=== PATIENT | female | born 1930 | race Caucasian/White ===

== ENCOUNTER 2018-03-08 05:29 | Inpatient (IN) | payer MEDICARE, OTHER ==
[2018-03-01 16:18] LABS: BASOPHILS # (AUTO) 0.1 X10'3 (0-0.2); BASOPHILS % (AUTO) 0.6 % (0-1); EOSINOPHILS # (AUTO) 0.3 X10'3 (0-0.9); EOSINOPHILS % (AUTO) 3.6 % (0-6); LYMPHOCYTES # (AUTO) 2.5 X10'3 (1.1-4.8); LYMPHOCYTES % (AUTO) 28.8 % (21-51); MEAN PLATELET VOLUME 8.3 FL (7.4-10.4); MONOCYTES # (AUTO) 0.6 X10'3 (0-0.9); MONOCYTES % (AUTO) 7.1 % (2-12); NEUTROPHILS # (AUTO) 5.3 X10'3 (1.8-7.7); NEUTROPHILS % (AUTO) 59.9 % (42-75); PRE OP HEMATOCRIT 28.3 % (35.0-45.0); PRE OP PLATELET COUNT 239 X10'3 (140-440); RED BLOOD COUNT 3.33 X10'6 (4.20-5.60); RED CELL DISTRIBUTION WIDTH 14.1 % (11.5-14.5)
[2018-03-01 16:21] LABS: PRE OP HEMOGLOBIN 9.3 g/dL (12.0-16.0)
[2018-03-01 16:41] LABS: ALBUMIN/GLOBULIN RATIO 0.6 (1.1-1.5); ALKALINE PHOSPHATASE 157 IU/L (46-116); BLOOD UREA NITROGEN 57 MG/DL (7-18); BUN/CREATININE RATIO 23.9 (6.6-38.0); CALCIUM 8.7 MG/DL (8.5-10.1); CHLORIDE 110 MMOL/L (99-107); CREATININE 2.38 MG/DL (0.40-0.90); PRE OP ALT 19 U/L (30-65); PRE OP ANION GAP 13 (8-16); PRE OP AST 22 U/L (10-37); PRE OP BILIRUB, TOTAL 0.3 MG/DL (0.0-1.0); PRE OP GLUCOSE 115 MG/DL (70-104); PRE OP POTASSIUM 4.3 MMOL/L (3.4-5.1); PRE OP SODIUM 142 MMOL/L (135-145); TOTAL CARBON DIOXIDE 18.7 MMOL/L (24-32); TOTAL PROTEIN 8.4 G/DL (6.4-8.2); eGFR 19 ML/MIN
[~2018-03-08] VITALS: Ht 154.9 cm; Wt 56.7 kg
[2018-03-08] VITALS (25 sets, daily range): BP systolic 101–200; BP diastolic 41–119
[~2018-03-08 05:29] MED LIST: LEVO100T PO; LISI40TA4 PO; normal saline 1000ml 1,000 ML IV SCH
[2018-03-08] MEDS ORDERED: famotidine 20mg tablet PO ONE (05:30)
[2018-03-08] MEDS ORDERED: gentamicin inj 240 MG in normal saline 100ml IV soln 94 ML IV ONE (05:30)
[2018-03-08] MEDS ORDERED: vancomycin inj 500 MG in normal saline 100ml IV soln 100 ML IV ONE (05:30)
[2018-03-08] MEDS ORDERED: fluoroscein sod 10% (100mg/ml) 5ml vial ONE (06:34)
[2018-03-08] MEDS ORDERED: iohexol 300 MG/1 ML 50ml polymer ONE (06:34)
[2018-03-08] MEDS ORDERED: sevoflurane 250ml liquid IH ONE (07:25)
[2018-03-08] MEDS ORDERED: fentaNYL /PF 50mcg/ml 5ml ampule ONE (07:25)
[2018-03-08] MEDS ORDERED: propofol inj 20 ML IV ONE ×2 (07:26→12:03)
[2018-03-08] MEDS ORDERED: rocuronium 10mg/ml inj IV ONE ×2 (07:26→10:44)
[2018-03-08] MEDS ORDERED: LIDOcaine 2% (20mg/ml) 5ml vial ONE (07:26)
[2018-03-08] MEDS ORDERED: sodium bicarbonate (8.4%) 1 mEq/ml syringe ONE (08:00)
[2018-03-08] MEDS ORDERED: ringers solution, lacted 1,000 ML IV SCH (09:28)
[2018-03-08] MEDS ORDERED: HYDROmorphone inj. 0.5 MG/0.5 ML DISP.SYRIN IV PRN ×2 (09:30→11:35)
[2018-03-08] MEDS ORDERED: morphine 4 MG/ML inj SYRINge IV PRN (09:30)
[2018-03-08] MEDS ORDERED: ondansetron/PF 4mg/2ml inj IV PRN ×3 (09:30→12:25)
[2018-03-08] MEDS ORDERED: ePHEDrine 50MG/ML INJ. ONE (10:44)
[2018-03-08] MEDS ORDERED: phenylephrine 10mg/ml inj. ONE (10:44)
[2018-03-08] MEDS ORDERED: sugammadex 200mg/2ml injection IV ONE (11:24)
[2018-03-08] MEDS ORDERED: ipratropium/albuterol 3ml nebule ONE (11:39)
[2018-03-08 11:41] LABS: ABG BASE EXCESS -15.8 mmol/L (-2.0-3.0); ABG HCO3 12.7 mmol/L (22.0-26.0); ABG OXYGEN SATURATION 95.6 % (95-98); ABG PCO2 (T) 41.4 mmHg (32.0-45.0); ABG PH (T) 7.106 (7.350-7.450); ABG PO2 (T) 103.9 mmHg (83-108); ALLEN'S TEST Positive; FCOHb 0.3 % (0.5-1.5); FLOW 15 L/min; FMetHb 0.2 % (0.3-1.12); FO2Hb 95.1 % (94-100); TOTAL HEMOGLOBIN 8.7 G/dl (12.0-16.0)
[2018-03-08] MEDS ORDERED: sodium bicarbonate (8.4%) 1 mEq/ml syringe IV ONE (11:50)
[2018-03-08] MEDS ORDERED: neostigmine methylsulfate 1 MG/ML 10ml vial ONE (12:03)
[2018-03-08] MEDS ORDERED: succinylcholine 20mg/ml inj IV ONE (12:03)
[2018-03-08] MEDS ORDERED: ondansetron/PF 4mg/2ml inj ONE (12:03)
[2018-03-08] MEDS ORDERED: glycopyrrolate 0.2mg/ml inj ONE (12:03)
[2018-03-08] MEDS ORDERED: midazolam 100mg in NS 100ml 100 ML IV PRN (12:21)
[2018-03-08] MEDS: normal saline 1000ml 1,000 ML IV SCH ×2 (12:21→13:55)
[2018-03-08] MEDS ORDERED: FENTANYL-0.9 % NACL/PF 100 ML IV PRN (12:21)
[2018-03-08] MEDS ORDERED: potassium Cl 20 mEq SR tablet PO PRN ×2 (12:25)
[2018-03-08] MEDS ORDERED: potassium Cl 40MEQ/NS 500ml 500 ML IV PRN ×2 (12:25)
[2018-03-08] MEDS ORDERED: acetaminophen 325mg tablet PO PRN (12:25)
[2018-03-08] MEDS ORDERED: potassium Cl 40MEQ/250ML bag 250 ML IV SCH (12:25)
[2018-03-08] MEDS ORDERED: potassium Cl 40MEQ/250ML bag 250 ML IV PRN (12:25)
[2018-03-08] MEDS ORDERED: midazolam 2 mg/2 ml injection IV ONE (12:25)
[2018-03-08] MEDS ORDERED: fentaNYL/PF 50MCG/1 ML 2ML syringe IV PRN (12:25)
[2018-03-08] MEDS ORDERED: ipratropium/albuterol 3ml nebule NEB PRN (12:25)
[2018-03-08] MEDS ORDERED: midazolam 2 mg/2 ml injection ONE (12:32)
[2018-03-08] MEDS ORDERED: MIDAZolam 5mg/ml 2ml vial IV ONE (12:35)
[2018-03-08 13:49] LABS: BASOPHILS # (AUTO) 0.1 X10'3 (0-0.2); BASOPHILS % (AUTO) 0.6 % (0-1); EOSINOPHILS % (AUTO) 0.2 % (0-6); HEMATOCRIT 24.3 % (35.0-45.0); HEMOGLOBIN 8.1 g/dl (12.0-16.0); LYMPHOCYTES # (AUTO) 0.5 X10'3 (1.1-4.8); LYMPHOCYTES % (AUTO) 5.7 % (21-51); MEAN CORPUSCULAR HEMOGLOBIN 27.9 PG (27.0-31.0); MEAN CORPUSCULAR HGB CONC 33.2 % (33.0-36.5); MEAN CORPUSCULAR VOLUME 84.2 FL (78-98); MEAN PLATELET VOLUME 8.8 FL (7.4-10.4); MONOCYTES # (AUTO) 0.1 X10'3 (0-0.9); MONOCYTES % (AUTO) 1.2 % (2-12); NEUTROPHILS # (AUTO) 8.3 X10'3 (1.8-7.7); NEUTROPHILS % (AUTO) 92.3 % (42-75); PLATELET COUNT 205 X10'3 (140-440); RED BLOOD COUNT 2.89 X10'6 (4.20-5.60); RED CELL DISTRIBUTION WIDTH 14.6 % (11.5-14.5); WHITE BLOOD COUNT 8.9 X10'3 (4.5-11.0)
[2018-03-08 14:00] LABS: PARTIAL THROMBOPLASTIN TIME 26 SECONDS (22-32); PROTHROMBIN TIME 10.7 SECONDS (9.0-12.0)
[2018-03-08 14:01] LABS: ABG BASE EXCESS -8.4 mmol/L (-2.0-3.0); ABG HCO3 17.1 mmol/L (22.0-26.0); ABG OXYGEN SATURATION 94.2 % (95-98); ABG PCO2 (T) 34.8 mmHg (32.0-45.0); ABG PH (T) 7.309 (7.350-7.450); ABG PO2 (T) 76.9 mmHg (83-108); ALLEN'S TEST Positive; FCOHb 0.3 % (0.5-1.5); FMetHb 0.3 % (0.3-1.12); FO2Hb 93.6 % (94-100); MINUTE VOLUME 7 L/min; PEEP 5 cm H2O; RESPIRATORY RATE 16 b/min; TIDAL VOLUME 450 mL; TOTAL HEMOGLOBIN 8.6 G/dl (12.0-16.0)
[2018-03-08 14:03] LABS: ALANINE AMINOTRANSFERASE 12 U/L (12-78); ALBUMIN 2.3 G/DL (3.4-5.0); ALBUMIN/GLOBULIN RATIO 0.5 (1.1-1.5); ALKALINE PHOSPHATASE 101 IU/L (46-116); ANION GAP 11 (8-16); ASPARTATE AMINO TRANSFERASE 18 U/L (10-37); BILIRUBIN,TOTAL 0.3 MG/DL (0.1-1.0); BLOOD UREA NITROGEN 46 MG/DL (7-18); BUN/CREATININE RATIO 21.3 (6.6-38.0); CHLORIDE 114 MMOL/L (99-107); CREATININE 2.16 MG/DL (0.40-0.90); GLUCOSE 186 MG/DL (70-104); MAGNESIUM 2.2 MG/DL (1.5-2.4); PHOSPHORUS 4.8 MG/DL (2.3-4.5); POTASSIUM 4.7 MMOL/L (3.5-5.1); SODIUM 144 MMOL/L (135-145); TOTAL CARBON DIOXIDE 19.2 MMOL/L (24-32); TOTAL PROTEIN 6.7 G/DL (6.4-8.2); eGFR 22 ML/MIN
[2018-03-08] MEDS: ipratropium/albuterol 3ml nebule NEB SCH ×3 (15:30→22:28)
[2018-03-08 16:11] LABS: CLARITY,URINE SLIGHTLY CLOUDY (Clear); COLOR,URINE YELLOW (Yellow); GLUCOSE, URINE 100 mg/dl (Neg); KETONES,URINE NEGATIVE (Neg); LEUKOCYTE ESTERASE ,URINE MODERATE (Neg); NITRITES, URINE NEGATIVE (Neg); OCCULT BLOOD,URINE LARGE (Neg); PH,URINE 5.5 (4.8-8.0); PROTEIN,URINE 30 mg/dl (Neg); UROBILINOGEN,URINE 0.2 E.U/dL (0.2-1.0)
[2018-03-08 16:14] LABS: UA COLLECTION TYPE NON-SPECIFIED
[2018-03-08 16:25] LABS: RBC,URINE TNTC /HPF (0-2); SQUAMOUS EPITHELIAL CELL,UR MODERATE /LPF (FEW); TRANSITIONAL EPI CELLS,URINE FEW /HPF; WBC,URINE TNTC /HPF (0-4)
[2018-03-08 16:26] LABS: BACTERIA,URINE FEW /HPF (Neg)
[2018-03-08 17:16] LABS: ABG BASE EXCESS -9.2 mmol/L (-2.0-3.0); ABG HCO3 15.7 mmol/L (22.0-26.0); ABG OXYGEN SATURATION 96.4 % (95-98); ABG PCO2 (T) 30.4 mmHg (32.0-45.0); ABG PH (T) 7.331 (7.350-7.450); ABG PO2 (T) 91.5 mmHg (83-108); ALLEN'S TEST Positive; FCOHb 0.3 % (0.5-1.5); FMetHb 0.2 % (0.3-1.12); FO2Hb 95.9 % (94-100); MINUTE VOLUME 8 L/min; PEEP 5 cm H2O; RESPIRATORY RATE 16 b/min; RESPIRATORY RATE (OBSERVED) 16 b/min; TOTAL HEMOGLOBIN 8.7 G/dl (12.0-16.0)
[2018-03-08 17:45] LABS: HEMOGLOBIN A1C 6.3 % (4.5-6.2)
[2018-03-08] MEDS ORDERED: docusate sod 100mg capsule PO SCH (20:00)
[2018-03-08] MEDS: lisinopril 20mg tablet PO SCH (20:00)
[2018-03-08] MEDS: heparin, porcine 5000 units/ml vial SQ SCH (20:44)
[2018-03-08] MEDS: famotidine/PF 10 mg/ml inj IV SCH (20:44)
[2018-03-08] MEDS: acetaminophen 325mg tablet PO PRN (23:25)
[2018-03-09] VITALS (24 sets, daily range): BP systolic 108–167; BP diastolic 44–84
[2018-03-09] MEDS ORDERED: dextrose ORAL solution 15 GM/59 ML bottle PO PRN ×2 (02:30)
[2018-03-09] MEDS ORDERED: dextrose 50%-water 50ml dispensing syringe IV PRN ×2 (02:30)
[2018-03-09] MEDS ORDERED: MESSAGE TO PHARMACY PO ONE (02:30)
[2018-03-09] MEDS ORDERED: glucagon, human recombinant 1mg kit SUBCUT PRN (02:30)
[2018-03-09] MEDS: ipratropium/albuterol 3ml nebule NEB SCH ×7 (02:33→20:43)
[2018-03-09] MEDS ORDERED: insulin Lispro (HumaLOG) vial - multi-dose SQ ONE (03:14)
[2018-03-09 03:41] LABS: ABG BASE EXCESS -9.6 mmol/L (-2.0-3.0); ABG HCO3 14.8 mmol/L (22.0-26.0); ABG OXYGEN SATURATION 94.8 % (95-98); ABG PCO2 (T) 28.8 mmHg (32.0-45.0); ABG PH (T) 7.336 (7.350-7.450); ABG PO2 (T) 81.8 mmHg (83-108); ALLEN'S TEST Positive; FCOHb 0.3 % (0.5-1.5); FMetHb 0.3 % (0.3-1.12); FO2Hb 94.2 % (94-100); MINUTE VOLUME 8 L/min; PATIENT TEMPERATURE 38.2; PEEP 5 cm H2O; RESPIRATORY RATE 16 b/min; RESPIRATORY RATE (OBSERVED) 18 b/min; TIDAL VOLUME 450 mL; TOTAL HEMOGLOBIN 8.2 G/dl (12.0-16.0)
[2018-03-09 05:52] LABS: BASOPHILS % (AUTO) 0 % (0-1); EOSINOPHILS % (AUTO) 0 % (0-6); HEMATOCRIT 24.7 % (35.0-45.0); HEMOGLOBIN 8.2 g/dl (12.0-16.0); LYMPHOCYTES # (AUTO) 0.3 X10'3 (1.1-4.8); LYMPHOCYTES % (AUTO) 2.1 % (21-51); MEAN CORPUSCULAR HEMOGLOBIN 28.6 PG (27.0-31.0); MEAN CORPUSCULAR HGB CONC 33.4 % (33.0-36.5); MEAN CORPUSCULAR VOLUME 85.7 FL (78-98); MEAN PLATELET VOLUME 9.2 FL (7.4-10.4); MONOCYTES # (AUTO) 0.4 X10'3 (0-0.9); MONOCYTES % (AUTO) 2.8 % (2-12); NEUTROPHILS # (AUTO) 14.4 X10'3 (1.8-7.7); NEUTROPHILS % (AUTO) 95.1 % (42-75); PLATELET COUNT 144 X10'3 (140-440); RED BLOOD COUNT 2.88 X10'6 (4.20-5.60); WHITE BLOOD COUNT 15.1 X10'3 (4.5-11.0)
[2018-03-09 06:01] LABS: ALANINE AMINOTRANSFERASE 11 U/L (12-78); ALBUMIN 2.1 G/DL (3.4-5.0); ALBUMIN/GLOBULIN RATIO 0.5 (1.1-1.5); ALKALINE PHOSPHATASE 75 IU/L (46-116); ANION GAP 14 (8-16); ASPARTATE AMINO TRANSFERASE 17 U/L (10-37); BILIRUBIN,TOTAL 0.2 MG/DL (0.1-1.0); BLOOD UREA NITROGEN 45 MG/DL (7-18); CALCIUM 7.8 MG/DL (8.5-10.1); CHLORIDE 115 MMOL/L (99-107); GLUCOSE 208 MG/DL (70-104); MAGNESIUM 2.1 MG/DL (1.5-2.4); PHOSPHORUS 3.9 MG/DL (2.3-4.5); POTASSIUM 4.5 MMOL/L (3.5-5.1); SODIUM 145 MMOL/L (135-145); TOTAL PROTEIN 6.5 G/DL (6.4-8.2); eGFR 18 ML/MIN
[2018-03-09] MEDS: levoTHYROXINE 100mcg tablet PO SCH (07:37)
[2018-03-09] MEDS: famotidine/PF 10 mg/ml inj IV SCH ×2 (07:37→19:59)
[2018-03-09] MEDS: acetaminophen 325mg tablet PO PRN (07:44)
[2018-03-09] MEDS: lisinopril 20mg tablet PO SCH ×2 (08:00→19:59)
[2018-03-09] MEDS: insulin Lispro (HumaLOG) vial - multi-dose SQ SCH ×2 (08:33→15:06)
[2018-03-09] MEDS: CefTRIAXone/D5W-Rocephin 1gm 50 ML IV SCH (09:38)
[2018-03-09] MEDS: sodium bicarbonate (8.4%) inj. 150 MEQ in dextrose 5%-water 1,000 ML IV SCH ×2 (09:38→19:58)
[2018-03-09] MEDS: heparin, porcine 5000 units/ml vial SQ SCH ×2 (10:32→19:59)
[2018-03-09] MEDS ORDERED: naloxone 0.4 mg/ml inj IV PRN (12:45)
[2018-03-09] MEDS ORDERED: racepinephrine 11.25mg/0.5ml nebule NEB PRN (12:45)
[2018-03-09] MEDS ORDERED: CADD PCA waste documentation MC PRN (12:45)
[2018-03-09] MEDS ORDERED: ipratropium/albuterol 3ml nebule NEB PRN (12:45)
[2018-03-09] MEDS: HYDROmorphone/NS 1 mg/ml CADD 50 ML IV SCH ×6 (13:00→23:00)
[2018-03-09] MEDS: mineral oil/petrolatum ophthal oint EACHEYE SCH ×2 (14:00→19:59)
[2018-03-09] MEDS: lactobacillus rhamnosus 10,000 MMU CELLS/CAPSULE PO SCH (19:59)
[2018-03-09] MEDS: insulin glargine (Lantus) pen - multi-dose SQ SCH (21:00)
[2018-03-10] VITALS (24 sets, daily range): BP systolic 109–186; BP diastolic 51–176
[2018-03-10] MEDS: HYDROmorphone/NS 1 mg/ml CADD 50 ML IV SCH ×5 (01:00→09:00)
[2018-03-10] MEDS: mineral oil/petrolatum ophthal oint EACHEYE SCH (02:00)
[2018-03-10] MEDS: ipratropium/albuterol 3ml nebule NEB SCH ×6 (02:45→20:14)
[2018-03-10 06:17] LABS: ALANINE AMINOTRANSFERASE 14 U/L (12-78); ALBUMIN 2.1 G/DL (3.4-5.0); ALBUMIN/GLOBULIN RATIO 0.5 (1.1-1.5); ALKALINE PHOSPHATASE 78 IU/L (46-116); ANION GAP 11 (8-16); ASPARTATE AMINO TRANSFERASE 36 U/L (10-37); BILIRUBIN,TOTAL 0.3 MG/DL (0.1-1.0); BLOOD UREA NITROGEN 48 MG/DL (7-18); CALCIUM 7.5 MG/DL (8.5-10.1); CHLORIDE 111 MMOL/L (99-107); CREATININE 2.53 MG/DL (0.40-0.90); GLUCOSE 158 MG/DL (70-104); PHOSPHORUS 3.8 MG/DL (2.3-4.5); POTASSIUM 4.3 MMOL/L (3.5-5.1); SODIUM 147 MMOL/L (135-145); TOTAL CARBON DIOXIDE 24.6 MMOL/L (24-32); TOTAL PROTEIN 6.7 G/DL (6.4-8.2); eGFR 18 ML/MIN
[2018-03-10 07:31] LABS: BASOPHILS % (AUTO) 0 % (0-1); EOSINOPHILS % (AUTO) 0.2 % (0-6); HEMATOCRIT 24.3 % (35.0-45.0); HEMOGLOBIN 8.1 g/dl (12.0-16.0); LYMPHOCYTES # (AUTO) 0.8 X10'3 (1.1-4.8); LYMPHOCYTES % (AUTO) 5.7 % (21-51); MEAN CORPUSCULAR HEMOGLOBIN 27.9 PG (27.0-31.0); MEAN CORPUSCULAR HGB CONC 33.2 % (33.0-36.5); MEAN CORPUSCULAR VOLUME 84.1 FL (78-98); MEAN PLATELET VOLUME 10.1 FL (7.4-10.4); MONOCYTES # (AUTO) 0.6 X10'3 (0-0.9); MONOCYTES % (AUTO) 3.8 % (2-12); NEUTROPHILS # (AUTO) 13.5 X10'3 (1.8-7.7); NEUTROPHILS % (AUTO) 90.3 % (42-75); PLATELET COUNT 156 X10'3 (140-440); RED BLOOD COUNT 2.89 X10'6 (4.20-5.60); RED CELL DISTRIBUTION WIDTH 14.9 % (11.5-14.5); WHITE BLOOD COUNT 14.9 X10'3 (4.5-11.0)
[2018-03-10] MEDS: HYDROcodone/acetaminophen 5mg/325mg tablet PO PRN ×2 (07:34→18:06)
[2018-03-10] MEDS: lactobacillus rhamnosus 10,000 MMU CELLS/CAPSULE PO SCH ×2 (07:35→20:51)
[2018-03-10] MEDS: lisinopril 20mg tablet PO SCH ×2 (07:35→20:51)
[2018-03-10] MEDS: levoTHYROXINE 100mcg tablet PO SCH (07:35)
[2018-03-10] MEDS: CefTRIAXone/D5W-Rocephin 1gm 50 ML IV SCH (07:37)
[2018-03-10] MEDS: famotidine/PF 10 mg/ml inj IV SCH (07:43)
[2018-03-10] MEDS: heparin, porcine 5000 units/ml vial SQ SCH ×2 (07:47→20:52)
[2018-03-10] MEDS: sodium bicarbonate (8.4%) inj. 150 MEQ in dextrose 5%-water 1,000 ML IV SCH (07:49)
[2018-03-10] MEDS ORDERED: docusate sod 250mg capsule PO SCH (08:00)
[2018-03-10] MEDS ORDERED: CefTRIAXone/D5W-Rocephin 1gm 50 ML IV SCH (08:00)
[2018-03-10] MEDS: insulin Lispro (HumaLOG) vial - multi-dose SQ SCH ×2 (08:33→19:39)
[2018-03-10] MEDS ORDERED: docusate sod 250mg capsule PO PRN ×2 (13:26→13:29)
[2018-03-10] MEDS: famotidine 20mg tablet PO SCH (20:52)
[2018-03-10] MEDS: insulin glargine (Lantus) pen - multi-dose SQ SCH (21:24)
[2018-03-11] VITALS (19 sets, daily range): BP systolic 116–176; BP diastolic 52–79
[2018-03-11] MEDS: HYDROcodone/acetaminophen 5mg/325mg tablet PO PRN (01:13)
[2018-03-11] MEDS: ipratropium/albuterol 3ml nebule NEB SCH ×4 (02:21→20:39)
[2018-03-11 04:49] LABS: BASOPHILS % (AUTO) 0.2 % (0-1); EOSINOPHILS # (AUTO) 0.1 X10'3 (0-0.9); EOSINOPHILS % (AUTO) 1.4 % (0-6); LYMPHOCYTES # (AUTO) 0.8 X10'3 (1.1-4.8); LYMPHOCYTES % (AUTO) 9.1 % (21-51); MEAN CORPUSCULAR HEMOGLOBIN 28.1 PG (27.0-31.0); MEAN CORPUSCULAR HGB CONC 33.2 % (33.0-36.5); MEAN CORPUSCULAR VOLUME 84.5 FL (78-98); MEAN PLATELET VOLUME 9.3 FL (7.4-10.4); MONOCYTES # (AUTO) 0.4 X10'3 (0-0.9); MONOCYTES % (AUTO) 4.3 % (2-12); NEUTROPHILS # (AUTO) 7.4 X10'3 (1.8-7.7); PLATELET COUNT 130 X10'3 (140-440); RED BLOOD COUNT 2.49 X10'6 (4.20-5.60); RED CELL DISTRIBUTION WIDTH 14.7 % (11.5-14.5); WHITE BLOOD COUNT 8.6 X10'3 (4.5-11.0)
[2018-03-11 05:03] LABS: ALANINE AMINOTRANSFERASE 12 U/L (12-78); ALBUMIN 1.8 G/DL (3.4-5.0); ALBUMIN/GLOBULIN RATIO 0.4 (1.1-1.5); ALKALINE PHOSPHATASE 70 IU/L (46-116); ANION GAP 7 (8-16); ASPARTATE AMINO TRANSFERASE 24 U/L (10-37); BILIRUBIN,TOTAL 0.4 MG/DL (0.1-1.0); BLOOD UREA NITROGEN 49 MG/DL (7-18); BUN/CREATININE RATIO 18.8 (6.6-38.0); CALCIUM 7.7 MG/DL (8.5-10.1); CHLORIDE 107 MMOL/L (99-107); CREATININE 2.61 MG/DL (0.40-0.90); GLUCOSE 93 MG/DL (70-104); PHOSPHORUS 3.8 MG/DL (2.3-4.5); POTASSIUM 3.7 MMOL/L (3.5-5.1); SODIUM 142 MMOL/L (135-145); TOTAL CARBON DIOXIDE 27.8 MMOL/L (24-32); TOTAL PROTEIN 5.9 G/DL (6.4-8.2); eGFR 17 ML/MIN
[2018-03-11 05:08] LABS: HEMATOCRIT 21.1 % (35.0-45.0)
[2018-03-11] MEDS: heparin, porcine 5000 units/ml vial SQ SCH ×2 (08:00→19:22)
[2018-03-11] MEDS: famotidine 20mg tablet PO SCH (08:20)
[2018-03-11] MEDS: lactobacillus rhamnosus 10,000 MMU CELLS/CAPSULE PO SCH ×2 (08:20→19:22)
[2018-03-11] MEDS: lisinopril 20mg tablet PO SCH ×2 (08:20→19:22)
[2018-03-11] MEDS: CefTRIAXone/D5W-Rocephin 1gm 50 ML IV SCH (08:21)
[2018-03-11] MEDS: levoTHYROXINE 100mcg tablet PO SCH (08:23)
[2018-03-11 09:36] LABS: HEMATOCRIT 26.1 % (35.0-45.0); HEMOGLOBIN 8.9 g/dl (12.0-16.0); MEAN CORPUSCULAR HEMOGLOBIN 28.8 PG (27.0-31.0); MEAN CORPUSCULAR VOLUME 84.7 FL (78-98); MEAN PLATELET VOLUME 9.3 FL (7.4-10.4); PLATELET COUNT 136 X10'3 (140-440); RED BLOOD COUNT 3.08 X10'6 (4.20-5.60); RED CELL DISTRIBUTION WIDTH 14.9 % (11.5-14.5); WHITE BLOOD COUNT 8.8 X10'3 (4.5-11.0)
[2018-03-11] MEDS: fluconazole 100mg tablet PO SCH (11:42)
[2018-03-11] MEDS: insulin Lispro (HumaLOG) vial - multi-dose SQ SCH (14:18)
[2018-03-11] MEDS: docusate sod 250mg capsule PO PRN (19:22)
[2018-03-11] MEDS: insulin glargine (Lantus) pen - multi-dose SQ SCH (20:37)
[2018-03-12] MEDS: ipratropium/albuterol 3ml nebule NEB SCH ×4 (02:09→19:38)
[2018-03-12 03:00] VITALS: BP 156/54
[2018-03-12 05:46] LABS: BASOPHILS % (AUTO) 0.2 % (0-1); EOSINOPHILS # (AUTO) 0.2 X10'3 (0-0.9); EOSINOPHILS % (AUTO) 2.4 % (0-6); HEMATOCRIT 25.7 % (35.0-45.0); HEMOGLOBIN 8.6 g/dl (12.0-16.0); LYMPHOCYTES % (AUTO) 13.2 % (21-51); MEAN CORPUSCULAR HEMOGLOBIN 28.3 PG (27.0-31.0); MEAN CORPUSCULAR HGB CONC 33.4 % (33.0-36.5); MEAN CORPUSCULAR VOLUME 84.8 FL (78-98); MEAN PLATELET VOLUME 9.4 FL (7.4-10.4); MONOCYTES # (AUTO) 0.5 X10'3 (0-0.9); MONOCYTES % (AUTO) 6.9 % (2-12); NEUTROPHILS # (AUTO) 5.8 X10'3 (1.8-7.7); NEUTROPHILS % (AUTO) 77.3 % (42-75); PLATELET COUNT 138 X10'3 (140-440); RED BLOOD COUNT 3.03 X10'6 (4.20-5.60); RED CELL DISTRIBUTION WIDTH 14.5 % (11.5-14.5); WHITE BLOOD COUNT 7.5 X10'3 (4.5-11.0)
[2018-03-12 06:19] LABS: ALANINE AMINOTRANSFERASE 16 U/L (12-78); ALBUMIN 1.7 G/DL (3.4-5.0); ALBUMIN/GLOBULIN RATIO 0.4 (1.1-1.5); ALKALINE PHOSPHATASE 80 IU/L (46-116); ANION GAP 8 (8-16); ASPARTATE AMINO TRANSFERASE 20 U/L (10-37); BILIRUBIN,TOTAL 0.4 MG/DL (0.1-1.0); BLOOD UREA NITROGEN 45 MG/DL (7-18); BUN/CREATININE RATIO 17.6 (6.6-38.0); CALCIUM 8.3 MG/DL (8.5-10.1); CHLORIDE 106 MMOL/L (99-107); CREATININE 2.56 MG/DL (0.40-0.90); GLUCOSE 92 MG/DL (70-104); PHOSPHORUS 3.5 MG/DL (2.3-4.5); SODIUM 139 MMOL/L (135-145); TOTAL CARBON DIOXIDE 24.7 MMOL/L (24-32); eGFR 18 ML/MIN
[2018-03-12 06:22] VITALS: BP 176/73
[2018-03-12] MEDS: levoTHYROXINE 100mcg tablet PO SCH (07:18)
[2018-03-12] MEDS: heparin, porcine 5000 units/ml vial SQ SCH ×2 (07:18→19:36)
[2018-03-12] MEDS: lisinopril 20mg tablet PO SCH ×2 (07:18→19:36)
[2018-03-12] MEDS: fluconazole 100mg tablet PO SCH (07:18)
[2018-03-12] MEDS: lactobacillus rhamnosus 10,000 MMU CELLS/CAPSULE PO SCH ×2 (07:18→19:36)
[2018-03-12 13:12] VITALS: BP 192/68
[2018-03-12 15:45] VITALS: BP 128/62
[2018-03-12] MEDS: acetaminophen 325mg tablet PO PRN (15:54)
[2018-03-12 17:42] LABS: CLARITY,URINE TURBID (Clear); COLOR,URINE YELLOW (Yellow); GLUCOSE, URINE NEGATIVE (Neg); KETONES,URINE NEGATIVE (Neg); LEUKOCYTE ESTERASE ,URINE LARGE (Neg); NITRITES, URINE NEGATIVE (Neg); OCCULT BLOOD,URINE LARGE (Neg); PROTEIN,URINE 100 mg/dl (Neg); UROBILINOGEN,URINE 0.2 E.U/dL (0.2-1.0)
[2018-03-12 17:48] LABS: UA COLLECTION TYPE FOLEY CATH
[2018-03-12 17:57] LABS: AMORPHOUS PHOSPHATES 1+; BACTERIA,URINE NONE SEEN /HPF (Neg); MUCUS STRANDS MANY /LPF (Neg); RBC,URINE TNTC /HPF (0-2); RENAL CELLS, URINE MANY /HPF; SQUAMOUS EPITHELIAL CELL,UR FEW /LPF (FEW); TRANSITIONAL EPI CELLS,URINE MODERATE /HPF; WBC,URINE TNTC /HPF (0-4)
[2018-03-12 17:58] LABS: WBC CLUMPS,URINE MODERATE /HPF (NEGATIVE)
[2018-03-12] MEDS: insulin Lispro (HumaLOG) vial - multi-dose SQ SCH (18:44)
[2018-03-12 19:00] VITALS: BP 137/56
[2018-03-12] MEDS: insulin glargine (Lantus) pen - multi-dose SQ SCH (21:24)
[2018-03-12 23:00] VITALS: BP 158/59
[2018-03-13] VITALS (7 sets, daily range): BP systolic 142–159; BP diastolic 50–70
[2018-03-13 00:36] LABS: ABG BASE EXCESS -0.9 mmol/L (-2.0-3.0); ABG OXYGEN SATURATION 94.3 % (95-98); ABG PCO2 (T) 29.6 mmHg (32.0-45.0); ABG PH (T) 7.487 (7.350-7.450); ABG PO2 (T) 70.5 mmHg (83-108); FCOHb 0.3 % (0.5-1.5); FLOW 2 L/min; PATIENT TEMPERATURE 36.8; TOTAL HEMOGLOBIN 9.4 G/dl (12.0-16.0)
[2018-03-13] MEDS ORDERED: furosemide 40mg/4ml inj IV ONE (00:55)
[2018-03-13] MEDS: ipratropium/albuterol 3ml nebule NEB SCH ×4 (02:37→21:57)
[2018-03-13 05:25] LABS: ALANINE AMINOTRANSFERASE 17 U/L (12-78); ALBUMIN 1.8 G/DL (3.4-5.0); ALBUMIN/GLOBULIN RATIO 0.4 (1.1-1.5); ALKALINE PHOSPHATASE 82 IU/L (46-116); ANION GAP 12 (8-16); ASPARTATE AMINO TRANSFERASE 19 U/L (10-37); BILIRUBIN,TOTAL 0.5 MG/DL (0.1-1.0); BLOOD UREA NITROGEN 46 MG/DL (7-18); CALCIUM 8.1 MG/DL (8.5-10.1); CHLORIDE 107 MMOL/L (99-107); CREATININE 2.56 MG/DL (0.40-0.90); GLUCOSE 102 MG/DL (70-104); MAGNESIUM 1.8 MG/DL (1.5-2.4); POTASSIUM 3.9 MMOL/L (3.5-5.1); SODIUM 142 MMOL/L (135-145); TOTAL CARBON DIOXIDE 23.3 MMOL/L (24-32); TOTAL PROTEIN 6.5 G/DL (6.4-8.2); eGFR 18 ML/MIN
[2018-03-13] MEDS: fluconazole 100mg tablet PO SCH (07:26)
[2018-03-13] MEDS: levoTHYROXINE 100mcg tablet PO SCH (07:26)
[2018-03-13] MEDS: heparin, porcine 5000 units/ml vial SQ SCH ×2 (07:26→19:13)
[2018-03-13] MEDS: lactobacillus rhamnosus 10,000 MMU CELLS/CAPSULE PO SCH ×2 (07:26→19:13)
[2018-03-13] MEDS: lisinopril 20mg tablet PO SCH ×2 (07:26→19:13)
[2018-03-13] MEDS: insulin Lispro (HumaLOG) vial - multi-dose SQ SCH ×3 (08:42→18:39)
[2018-03-13] MEDS: docusate sod 250mg capsule PO PRN (15:00)
[2018-03-13] MEDS: insulin glargine (Lantus) pen - multi-dose SQ SCH (21:26)
[2018-03-14 03:00] VITALS: BP 158/56
[2018-03-14] MEDS: ipratropium/albuterol 3ml nebule NEB SCH ×3 (04:07→14:37)
[2018-03-14 05:30] VITALS: BP 135/53
[2018-03-14 05:54] LABS: BASOPHILS % (AUTO) 0.2 % (0-1); EOSINOPHILS # (AUTO) 0.1 X10'3 (0-0.9); EOSINOPHILS % (AUTO) 1.8 % (0-6); HEMATOCRIT 26.1 % (35.0-45.0); HEMOGLOBIN 8.6 g/dl (12.0-16.0); LYMPHOCYTES # (AUTO) 1.3 X10'3 (1.1-4.8); LYMPHOCYTES % (AUTO) 17.4 % (21-51); MEAN CORPUSCULAR HEMOGLOBIN 27.9 PG (27.0-31.0); MEAN CORPUSCULAR HGB CONC 33.1 % (33.0-36.5); MEAN CORPUSCULAR VOLUME 84.2 FL (78-98); MEAN PLATELET VOLUME 9.1 FL (7.4-10.4); MONOCYTES # (AUTO) 0.8 X10'3 (0-0.9); MONOCYTES % (AUTO) 10.4 % (2-12); NEUTROPHILS # (AUTO) 5.4 X10'3 (1.8-7.7); NEUTROPHILS % (AUTO) 70.2 % (42-75); PLATELET COUNT 146 X10'3 (140-440); RED CELL DISTRIBUTION WIDTH 15.2 % (11.5-14.5); WHITE BLOOD COUNT 7.7 X10'3 (4.5-11.0)
[2018-03-14 06:19] LABS: ALANINE AMINOTRANSFERASE 10 U/L (12-78); ALBUMIN 1.6 G/DL (3.4-5.0); ALBUMIN/GLOBULIN RATIO 0.4 (1.1-1.5); ANION GAP 9 (8-16); ASPARTATE AMINO TRANSFERASE 16 U/L (10-37); BILIRUBIN,TOTAL 0.4 MG/DL (0.1-1.0); BLOOD UREA NITROGEN 46 MG/DL (7-18); BUN/CREATININE RATIO 17.5 (6.6-38.0); CALCIUM 8.1 MG/DL (8.5-10.1); CHLORIDE 107 MMOL/L (99-107); CREATININE 2.63 MG/DL (0.40-0.90); GLUCOSE 110 MG/DL (70-104); MAGNESIUM 1.7 MG/DL (1.5-2.4); PHOSPHORUS 3.4 MG/DL (2.3-4.5); SODIUM 142 MMOL/L (135-145); TOTAL CARBON DIOXIDE 26.1 MMOL/L (24-32); TOTAL PROTEIN 6.1 G/DL (6.4-8.2); eGFR 17 ML/MIN
[2018-03-14 06:20] LABS: ALKALINE PHOSPHATASE 83 IU/L (46-116)
[2018-03-14] MEDS: lactobacillus rhamnosus 10,000 MMU CELLS/CAPSULE PO SCH (07:58)
[2018-03-14] MEDS: fluconazole 100mg tablet PO SCH (07:58)
[2018-03-14] MEDS: levoTHYROXINE 100mcg tablet PO SCH (07:58)
[2018-03-14] MEDS: heparin, porcine 5000 units/ml vial SQ SCH (07:58)
[2018-03-14] MEDS: lisinopril 20mg tablet PO SCH (07:58)
[2018-03-14] MEDS: insulin Lispro (HumaLOG) vial - multi-dose SQ SCH ×2 (09:24→13:58)
[2018-03-14 11:00] VITALS: BP 133/49
[2018-03-14] MEDS ORDERED: micafungin inj 100 MG in normal saline 100ml IV soln 100 ML IV SCH (14:20)
[2018-03-14 14:54] LABS: CLARITY,URINE CLOUDY (Clear); COLOR,URINE YELLOW (Yellow); GLUCOSE, URINE NEGATIVE (Neg); KETONES,URINE NEGATIVE (Neg); LEUKOCYTE ESTERASE ,URINE LARGE (Neg); NITRITES, URINE NEGATIVE (Neg); OCCULT BLOOD,URINE LARGE (Neg); PROTEIN,URINE 100 mg/dl (Neg); UROBILINOGEN,URINE 0.2 E.U/dL (0.2-1.0)
[2018-03-14 14:58] LABS: UA COLLECTION TYPE FOLEY CATH
[2018-03-14 15:00] VITALS: BP 147/52
[2018-03-14] MEDS ORDERED: MICA100V3 IV (15:00)
[2018-03-14] MEDS ORDERED: HEPA500017 SQ (15:00)
[2018-03-14 15:05] LABS: BACTERIA,URINE 1+ /HPF (Neg); MUCUS STRANDS NONE SEEN /LPF (Neg); RBC,URINE TNTC /HPF (0-2); SQUAMOUS EPITHELIAL CELL,UR FEW /LPF (FEW); WBC,URINE TNTC /HPF (0-4)
== END 2018-03-14 18:58 | DRG 982 ==
LOC: PAS 05:29 → CICU 2S 13:07 → PCU 3S 03-11 13:05
PROVIDERS: ADMIT Internal Medicine Critical Care Medicine; ATTEND Internal Medicine Critical Care Medicine
PROC: 0T768DZ Dilation of Right Ureter with Intraluminal Device, Via Natural or Artificial Opening Endoscopic (ICD-10-PCS; 2018-03-08)
PROC: 5A1945Z Respiratory Ventilation, 24-96 Consecutive Hours (ICD-10-PCS; 2018-03-08)
PROC: 0TC03ZZ Extirpation of Matter from Right Kidney, Percutaneous Approach (ICD-10-PCS; principal; 2018-03-08 07:25)
PROC: 30233N1 Transfusion of Nonautologous Red Blood Cells into Peripheral Vein, Percutaneous Approach (ICD-10-PCS; 2018-03-11)
DX: J95.821 Acute postprocedural respiratory failure (principal); E87.2 Acidosis; I13.0 Hypertensive heart and chronic kidney disease with heart failure and stage 1 through stage 4 chronic kidney disease, or unspecified chronic kidney disease; N18.4 Chronic kidney disease, stage 4 (severe); Q61.3 Polycystic kidney, unspecified; B37.41 Candidal cystitis and urethritis; N20.0 Calculus of kidney; I50.9 Heart failure, unspecified; E11.22 Type 2 diabetes mellitus with diabetic chronic kidney disease; D63.1 Anemia in chronic kidney disease; Z79.899 Other long term (current) drug therapy; Z88.0 Allergy status to penicillin; Z88.2 Allergy status to sulfonamides
CPT/HCPCS: 36415; 36600; 71045; 71046; 74018; 74176; 76001; 80053; 81001; 82803; 82948; 83036; 83605; 83735; 83880; 84100; 84145; 84443; 85018; 85025; 85027; 85610; 85730; 86885; 86900; 86901; 86920; 87040; 87070; 87077; 87088; 88300; 93005; 94002; 94003; 94640; 94667; 94668; 94760; 97110; 97116; 97161; 97530; 97535; A4344; A4355; A4357; A4402; A6213; A6449; A7000; A7015; C1729; C1758; C1769; C2617; C2628; C9399; J0330; J0696; J1170; J1580; J1644; J1815; J1940; J2001; J2248; J2250; J2370; J2405; J2704; J2710; J3010; J3370; J3490; J7030; J7120; P9016; Q9967

== ENCOUNTER 2019-06-15 14:58 | Emergency (ER) | payer MEDICARE, OTHER ==
[~2019-06-15] VITALS: Ht 152.4 cm; Wt 55.9 kg
[~2019-06-15 14:58] MED LIST changes: +HEPA500017 SQ; -normal saline 1000ml 1,000 ML IV SCH
[2019-06-15 16:06] LABS: CLARITY,URINE CLOUDY (Clear); COLOR,URINE BROWN (Yellow); GLUCOSE, URINE NEGATIVE (Neg); KETONES,URINE NEGATIVE (Neg); LEUKOCYTE ESTERASE ,URINE LARGE (Neg); NITRITES, URINE NEGATIVE (Neg); OCCULT BLOOD,URINE LARGE (Neg); PH,URINE 5.5 (4.8-8.0); PROTEIN,URINE >=300 mg/dl (Neg); UROBILINOGEN,URINE 0.2 E.U/dL (0.2-1.0)
[2019-06-15 16:13] LABS: UA COLLECTION TYPE CLN CATCH MIDSTREAM
[2019-06-15 16:15] LABS: BACTERIA,URINE 3+ /HPF (Neg); MUCUS STRANDS FEW /LPF (Neg); RBC,URINE TNTC /HPF (0-2); SQUAMOUS EPITHELIAL CELL,UR MANY /LPF (FEW); WBC,URINE TNTC /HPF (0-4)
[2019-06-15 16:18] LABS: BASOPHILS # (AUTO) 0.1 X10'3 (0-0.2); BASOPHILS % (AUTO) 0.5 % (0-1); EOSINOPHILS # (AUTO) 0.3 X10'3 (0-0.9); EOSINOPHILS % (AUTO) 1.9 % (0-6); HEMOGLOBIN 9.8 g/dl (12.0-16.0); LYMPHOCYTES # (AUTO) 1.2 X10'3 (1.1-4.8); LYMPHOCYTES % (AUTO) 8.9 % (21-51); MEAN CORPUSCULAR HGB CONC 32.8 g/dL (33.0-36.5); MEAN CORPUSCULAR VOLUME 85.6 FL (78-98); MEAN PLATELET VOLUME 8.1 FL (7.4-10.4); MONOCYTES # (AUTO) 0.6 X10'3 (0-0.9); MONOCYTES % (AUTO) 4.7 % (2-12); NEUTROPHILS # (AUTO) 11.2 X10'3 (1.8-7.7); PLATELET COUNT 191 X10'3 (140-440); RED BLOOD COUNT 3.51 X10'6 (4.20-5.60); RED CELL DISTRIBUTION WIDTH 15.1 % (11.5-14.5); WHITE BLOOD COUNT 13.4 X10'3 (4.5-11.0)
[2019-06-15 16:36] LABS: ALANINE AMINOTRANSFERASE 11 U/L (12-78); ALBUMIN 2.5 G/DL (3.4-5.0); ALBUMIN/GLOBULIN RATIO 0.5 (1.1-1.5); ALKALINE PHOSPHATASE 103 IU/L (46-116); ANION GAP 11 (8-16); ASPARTATE AMINO TRANSFERASE 16 U/L (10-37); BILIRUBIN,TOTAL 0.5 MG/DL (0.1-1.0); BLOOD UREA NITROGEN 45 MG/DL (7-18); BUN/CREATININE RATIO 17.2 (6.6-38.0); CALCIUM 9.5 MG/DL (8.5-10.1); CHLORIDE 113 MMOL/L (99-107); CREATININE 2.61 MG/DL (0.40-0.90); GLUCOSE 134 MG/DL (70-104); LIPASE 86 U/L (73-393); MAGNESIUM 2.1 MG/DL (1.5-2.4); POTASSIUM 4.1 MMOL/L (3.5-5.1); SODIUM 144 MMOL/L (135-145); TOTAL CARBON DIOXIDE 19.8 MMOL/L (24-32); TOTAL PROTEIN 7.4 G/DL (6.4-8.2); eGFR 17 ML/MIN
[2019-06-15] MEDS ORDERED: LISI2.5T2 PO (16:39)
[2019-06-15] MEDS ORDERED: lisinopril 10 MG tablet PO ONE (16:40)
[2019-06-15] MEDS ORDERED: lisinopril 5mg tablet PO ONE (16:50)
[2019-06-15] MEDS ORDERED: CefTRIAXone 2gm/D5W 50ml 50 ML IV ONE (16:55)
[2019-06-15] MEDS ORDERED: AMLO2.5T2 PO (17:00)
[2019-06-15] MEDS ORDERED: CEPH250T PO (17:00)
[2019-06-15 18:14] VITALS: BP 194/68
== END 2019-06-15 18:16 | disposition home or self-care (01) ==
LOC: ER 14:59
DX: N39.0 Urinary tract infection, site not specified (principal); I12.9 Hypertensive chronic kidney disease with stage 1 through stage 4 chronic kidney disease, or unspecified chronic kidney disease; N18.9 Chronic kidney disease, unspecified; D64.9 Anemia, unspecified; E03.9 Hypothyroidism, unspecified; Z87.442 Personal history of urinary calculi; Z88.0 Allergy status to penicillin; Z88.2 Allergy status to sulfonamides; Z79.899 Other long term (current) drug therapy
CPT/HCPCS: 36415; 80053; 81001; 83690; 83735; 85025; 96365; 99283; J0696

== ENCOUNTER 2019-07-26 10:19 | Inpatient (IN) | payer MEDICARE, OTHER ==
[~2019-07-26] VITALS: Ht 157.5 cm; Wt 54.5 kg
[~2019-07-26 10:19] MED LIST changes: +LISI2.5T2 PO
--- NOTE | 2019-07-26 11:06 | NUR ---
Family at bedside,awaiting for Ed provider.
--- NOTE | 2019-07-26 11:38 | NUR ---
awaiting for ED .
--- NOTE | 2019-07-26 12:03 | NUR ---
Dr. John at bedside.
[2019-07-26 12:30] LABS: CLARITY,URINE TURBID (Clear); COLOR,URINE YELLOW (Yellow); GLUCOSE, URINE NEGATIVE (Neg); KETONES,URINE NEGATIVE (Neg); LEUKOCYTE ESTERASE ,URINE LARGE (Neg); NITRITES, URINE POSITIVE (Neg); OCCULT BLOOD,URINE LARGE (Neg); PH,URINE 5.5 (4.8-8.0); PROTEIN,URINE >=300 mg/dl (Neg); UROBILINOGEN,URINE 0.2 E.U/dL (0.2-1.0)
[2019-07-26 12:32] LABS: UA COLLECTION TYPE STRAIGHT CATH
[2019-07-26 12:37] LABS: BACTERIA,URINE 4+ /HPF (Neg); MUCUS STRANDS NONE SEEN /LPF (Neg); RBC,URINE 50-100 /HPF (0-2); RENAL CELLS, URINE FEW /HPF; SQUAMOUS EPITHELIAL CELL,UR FEW /LPF (FEW); WBC CLUMPS,URINE MANY /HPF (NEGATIVE); WBC,URINE TNTC /HPF (0-4)
[2019-07-26] MEDS ORDERED: CefTRIAXone/D5W-Rocephin 1gm 50 ML IV ONE (13:00)
[2019-07-26 13:21] LABS: BASOPHILS # (AUTO) 0.1 X10'3 (0-0.2); BASOPHILS % (AUTO) 0.2 % (0-1); EOSINOPHILS % (AUTO) 0 % (0-6); HEMATOCRIT 35.9 % (35.0-45.0); HEMOGLOBIN 11.7 g/dl (12.0-16.0); LYMPHOCYTES # (AUTO) 1.3 X10'3 (1.1-4.8); LYMPHOCYTES % (AUTO) 3.7 % (21-51); MEAN CORPUSCULAR HEMOGLOBIN 27.8 PG (27.0-31.0); MEAN CORPUSCULAR HGB CONC 32.6 g/dL (33.0-36.5); MEAN CORPUSCULAR VOLUME 85.5 FL (78-98); MEAN PLATELET VOLUME 8.6 FL (7.4-10.4); MONOCYTES # (AUTO) 1.4 X10'3 (0-0.9); MONOCYTES % (AUTO) 4.2 % (2-12); NEUTROPHILS # (AUTO) 31.9 X10'3 (1.8-7.7); NEUTROPHILS % (AUTO) 91.9 % (42-75); PLATELET COUNT 206 X10'3 (140-440); RED CELL DISTRIBUTION WIDTH 15.1 % (11.5-14.5)
[2019-07-26 13:34] LABS: ALANINE AMINOTRANSFERASE 24 U/L (12-78); ALBUMIN 2.6 G/DL (3.4-5.0); ALBUMIN/GLOBULIN RATIO 0.5 (1.1-1.5); ALKALINE PHOSPHATASE 110 IU/L (46-116); ANION GAP 14 (8-16); ASPARTATE AMINO TRANSFERASE 75 U/L (10-37); BILIRUBIN,TOTAL 0.7 MG/DL (0.1-1.0); BLOOD UREA NITROGEN 53 MG/DL (7-18); BUN/CREATININE RATIO 13.1 (6.6-38.0); CHLORIDE 110 MMOL/L (99-107); CREATININE 4.05 MG/DL (0.40-0.90); GLUCOSE 205 MG/DL (70-104); POTASSIUM 3.9 MMOL/L (3.5-5.1); SODIUM 141 MMOL/L (135-145); TOTAL CARBON DIOXIDE 17.4 MMOL/L (24-32); TOTAL PROTEIN 8.3 G/DL (6.4-8.2); eGFR 10 ML/MIN
[2019-07-26 13:35] LABS: WHITE BLOOD COUNT 34.7 X10'3 (4.5-11.0)
[2019-07-26 13:36] LABS: CALCIUM 12.7 MG/DL (8.5-10.1)
[2019-07-26] MEDS ORDERED: AMLO2.5T2 PO (13:44)
[2019-07-26] MEDS ORDERED: SYN0.088T PO (13:44)
[2019-07-26] MEDS ORDERED: normal saline 1000ml 1,000 ML IV ONE (13:49)
--- NOTE | 2019-07-26 14:01 | NUR ---
radiology at bedside.
[2019-07-26 14:07] LABS: TOTAL CELLS COUNTED 100
[2019-07-26 14:08] LABS: ANISOCYTOSIS 1+; BURR CELLS 1+; ELLIPTOCYTES 1+; PLATELET ESTIMATE NORMAL
--- NOTE | 2019-07-26 14:08 | NUR ---
PATIENT RESTING COMFORTABLY ON BED.
[2019-07-26] MEDS ORDERED: normal saline 1000ml 1,000 ML IV SCH (14:24)
[2019-07-26] MEDS ORDERED: potassium Cl 20 mEq SR tablet PO PRN ×2 (14:25)
[2019-07-26] MEDS ORDERED: bisacodyl 10mg suppository rectal RC PRN (14:25)
[2019-07-26] MEDS ORDERED: mag hydrox/Alum hydrox/simeth 30ml oral suspension PO PRN (14:25)
[2019-07-26] MEDS ORDERED: metoclopramide 5 mg/ml inj IV PRN (14:25)
[2019-07-26] MEDS ORDERED: HYDROcodone/acetaminophen 10/325mg tab PO PRN (14:25)
[2019-07-26] MEDS ORDERED: potassium CL 10mEq/100ml bag 100 ML IV PRN ×2 (14:25)
[2019-07-26] MEDS ORDERED: magnesium 2GM in 50ml NS 50 ML IV PRN (14:25)
[2019-07-26] MEDS ORDERED: diphenhydrAMINE 25mg capsule PO PRN (14:25)
[2019-07-26] MEDS ORDERED: magnesium hydroxide 30ml (MOM) UD suspension PO PRN (14:25)
[2019-07-26] MEDS ORDERED: morphine 2 MG/ML inj. syringe IV PRN ×2 (14:25)
[2019-07-26] MEDS: K and/or MAG REPLACEMENT MC SCH (14:25)
[2019-07-26] MEDS ORDERED: acetaminophen 325mg tablet PO PRN ×2 (14:25)
[2019-07-26] MEDS ORDERED: HYDROmorphone 1 mg/ml syringe IV PRN (14:25)
[2019-07-26] MEDS ORDERED: acetaminophen 650mg rectal suppository RC PRN (14:25)
[2019-07-26] MEDS ORDERED: diphenhydrAMINE 50 mg/ml inj IV PRN (14:25)
[2019-07-26] MEDS ORDERED: HYDROcodone/acetaminophen 5mg/325mg tablet PO PRN (14:25)
[2019-07-26] MEDS ORDERED: ondansetron/PF 4mg/2ml inj IV PRN (14:25)
[2019-07-26] MEDS ORDERED: magnesium 4gm in 100ml NS 100 ML IV PRN (14:25)
[2019-07-26] MEDS ORDERED: magnesium Cl slow-release 64mg tablet PO PRN (14:25)
[2019-07-26] MEDS ORDERED: HYDROmorphone inj. 0.5 MG/0.5 ML DISP.SYRIN IV PRN (14:25)
--- NOTE | 2019-07-26 16:02 | NUR ---
Attempted to call Caren gearcase assembler,not available at this time,will call ED RN back in 10 minutes per Surgical A&P Mechanic.
--- NOTE | 2019-07-26 16:23 | NUR ---
Patient in room ED 7. I have received report from GIANLUCA Somers and had the opportunity to ask questions and assume patient care.
--- NOTE | 2019-07-26 16:35 | NUR ---
pt arrived to floor from ED via gurney. resource RN assisted with getting pt transferred to bed and settled.
[2019-07-26 16:45] VITALS: BP 166/74
[2019-07-26 18:00] VITALS: BP 132/64
--- NOTE | 2019-07-26 18:25 | NUR ---
Patient in room SHAD 359. I have received report from GIANLUCA Fabian and had the opportunity to ask questions and assume patient care.
--- NOTE | 2019-07-26 18:41 | NUR ---
Problems reprioritized. Patient report given, questions answered & plan of care reviewed with GIANLUCA Britt.
--- NOTE | 2019-07-26 19:40 | NUR ---
Bladder scan performed 60 mL post residual urine. Will continue to monitor.
[2019-07-26] MEDS: heparin, porcine 5000 units/ml vial SQ SCH (20:10)
[2019-07-26] MEDS ORDERED: temazepam 15mg capsule PO PRN (21:00)
--- NOTE | 2019-07-26 21:43 | NUR ---
Bladder scan performed, 307mL. Pt placed on bed neil, unable to void. Will continue to monitor.
--- NOTE | 2019-07-26 23:42 | NUR ---
Bladder scan performed, 168 mL incontinent post void residual. Will continue to monitor.
[2019-07-27] VITALS: BP 137/80
[2019-07-27] MEDS: sodium bicarbonate (8.4%) inj. 75 MEQ in dextrose 5% water 500ml 500 ML IV SCH ×4 (00:16→16:44)
--- NOTE | 2019-07-27 05:19 | NUR ---
Bladder scan performed, 189 mL. Will continue to monitor.
[2019-07-27 05:32] LABS: ALANINE AMINOTRANSFERASE 17 U/L (12-78); ALBUMIN 1.6 G/DL (3.4-5.0); ALBUMIN/GLOBULIN RATIO 0.4 (1.1-1.5); ALKALINE PHOSPHATASE 65 IU/L (46-116); ANION GAP 1 (8-16); ASPARTATE AMINO TRANSFERASE 43 U/L (10-37); BILIRUBIN,TOTAL 0.3 MG/DL (0.1-1.0); BLOOD UREA NITROGEN 49 MG/DL (7-18); BUN/CREATININE RATIO 16.7 (6.6-38.0); CALCIUM 8.9 MG/DL (8.5-10.1); CHLORIDE 102 MMOL/L (99-107); CREATININE 2.93 MG/DL (0.40-0.90); MAGNESIUM 1.5 MG/DL (1.5-2.4); PHOSPHORUS 2.8 MG/DL (2.3-4.5); SODIUM 141 MMOL/L (135-145); TOTAL CARBON DIOXIDE 38.2 MMOL/L (24-32); TOTAL PROTEIN 5.2 G/DL (6.4-8.2); eGFR 15 ML/MIN
[2019-07-27 05:48] LABS: POTASSIUM 2.9 MMOL/L (3.5-5.1)
[2019-07-27 05:54] LABS: BASOPHILS % (AUTO) 0 % (0-1); EOSINOPHILS % (AUTO) 0 % (0-6); HEMATOCRIT 23.8 % (35.0-45.0); HEMOGLOBIN 7.9 g/dl (12.0-16.0); LYMPHOCYTES # (AUTO) 1.3 X10'3 (1.1-4.8); LYMPHOCYTES % (AUTO) 6.7 % (21-51); MEAN CORPUSCULAR HEMOGLOBIN 28.4 PG (27.0-31.0); MEAN PLATELET VOLUME 8.9 FL (7.4-10.4); MONOCYTES # (AUTO) 0.7 X10'3 (0-0.9); MONOCYTES % (AUTO) 3.5 % (2-12); NEUTROPHILS % (AUTO) 89.8 % (42-75); PLATELET COUNT 125 X10'3 (140-440); RED BLOOD COUNT 2.77 X10'6 (4.20-5.60); RED CELL DISTRIBUTION WIDTH 15.3 % (11.5-14.5); WHITE BLOOD COUNT 18.9 X10'3 (4.5-11.0)
[2019-07-27 06:26] LABS: GLUCOSE 810 MG/DL (70-104)
--- NOTE | 2019-07-27 06:37 | NUR ---
Patient in room SHAD 359. I have received report from Agnieszka HOUGH and had the opportunity to ask questions and assume patient care.
--- NOTE | 2019-07-27 06:49 | NUR ---
Glucose on the chemistry test done this am was 810 mg/dl, K of 2.9. Capillary glucose checked, result shows 144 mg/dl. I called the lab to request repeat of chemistry test
--- NOTE | 2019-07-27 06:54 | NUR ---
Problems reprioritized. Patient report given, questions answered & plan of care reviewed with GIANLUCA Robledo.
[2019-07-27 07:00] VITALS: BP 158/78
[2019-07-27 07:17] LABS: BASOPHILS # (AUTO) 0.1 X10'3 (0-0.2); BASOPHILS % (AUTO) 0.3 % (0-1); EOSINOPHILS % (AUTO) 0 % (0-6); HEMATOCRIT 31.6 % (35.0-45.0); HEMOGLOBIN 10.4 g/dl (12.0-16.0); LYMPHOCYTES # (AUTO) 1.6 X10'3 (1.1-4.8); LYMPHOCYTES % (AUTO) 6.4 % (21-51); MEAN CORPUSCULAR HEMOGLOBIN 28.3 PG (27.0-31.0); MEAN CORPUSCULAR HGB CONC 33.1 g/dL (33.0-36.5); MEAN CORPUSCULAR VOLUME 85.3 FL (78-98); MEAN PLATELET VOLUME 8.5 FL (7.4-10.4); MONOCYTES # (AUTO) 0.8 X10'3 (0-0.9); MONOCYTES % (AUTO) 3.3 % (2-12); PLATELET COUNT 167 X10'3 (140-440); RED CELL DISTRIBUTION WIDTH 15.4 % (11.5-14.5); WHITE BLOOD COUNT 24.5 X10'3 (4.5-11.0)
[2019-07-27 07:37] LABS: ALANINE AMINOTRANSFERASE 25 U/L (12-78); ALBUMIN 2.2 G/DL (3.4-5.0); ALBUMIN/GLOBULIN RATIO 0.4 (1.1-1.5); ALKALINE PHOSPHATASE 90 IU/L (46-116); ANION GAP 11 (8-16); ASPARTATE AMINO TRANSFERASE 57 U/L (10-37); BILIRUBIN,TOTAL 0.4 MG/DL (0.1-1.0); BLOOD UREA NITROGEN 59 MG/DL (7-18); BUN/CREATININE RATIO 17.4 (6.6-38.0); CALCIUM 11.2 MG/DL (8.5-10.1); CHLORIDE 111 MMOL/L (99-107); CREATININE 3.39 MG/DL (0.40-0.90); GLUCOSE 154 MG/DL (70-104); MAGNESIUM 1.9 MG/DL (1.5-2.4); PHOSPHORUS 3.4 MG/DL (2.3-4.5); POTASSIUM 3.7 MMOL/L (3.5-5.1); SODIUM 143 MMOL/L (135-145); TOTAL CARBON DIOXIDE 21.3 MMOL/L (24-32); TOTAL PROTEIN 7.1 G/DL (6.4-8.2); eGFR 13 ML/MIN
[2019-07-27] MEDS: K and/or MAG REPLACEMENT MC SCH (08:00)
[2019-07-27] MEDS ORDERED: CefTRIAXone/D5W-Rocephin 1gm 50 ML IV SCH (08:00)
--- NOTE | 2019-07-27 08:24 | NUR ---
Spoke to Prabhjot, pharmacist, he verified to me that Rocephin and Bicarbonate drip are compatible to give
[2019-07-27] MEDS: pantoprazole 40 MG vial IV SCH (08:28)
[2019-07-27] MEDS: heparin, porcine 5000 units/ml vial SQ SCH ×2 (08:28→20:14)
[2019-07-27 11:00] VITALS: BP 146/62
--- NOTE | 2019-07-27 12:42 | NUR ---
Initial: Pt admit with sepsis with UTI and metabolic acidosis with hx advanced dementia. Per ED report patient's daughter states that she is looking for the patient to be placed on comfort care however pt DNR at this time as patient's daughter not available during admission and pt is confused and unable to cooperate in HPI per H&P. Patient's current wt is appropriate for age and stable with weights at past visits. Wt range 54-56 kg February 2018 to current admit, however current documented wt is pt stated. Per H&P pt cachectic, meeting criteria for malnutrition, notified. Pt on heart healthy diet documented to have refused dinner last night and per nursing services manager pt slept through breakfast this morning despite being sat up in a chair to eat. Per ED report patient's daughter reports pt has been sleeping all day, about 22 hours a day, and states pt with a decreased appetite. 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 Malnutrition with ONS recommendations not appropriate at this time. Will continue to follow closely. Recommendations: 1) Continue heart healthy diet; consider liberalization in diet if poor PO intake persists 2) Encourage PO intake, may need assistance given heavy sleep pattern 3) Monitor need for/acceptance to ONS 4) Bowel care 5) Wt per rx Addendum: 07/27/19 at [address] Amended: Links added.
[2019-07-27] MEDS: normal saline 1000ml 1,000 ML IV SCH (17:49)
[2019-07-27 18:00] VITALS: BP 144/58
[2019-07-27] MEDS ORDERED: vancomycin/NS 1 GM ADD-VANTAGE 250 ML X 1 DOSE IV ONE (18:00)
--- NOTE | 2019-07-27 18:52 | NUR ---
Patient in room [facility] 359. I have received report from GIANLUCA Robledo and had the opportunity to ask questions and assume patient care.
--- NOTE | 2019-07-27 18:53 | NUR ---
Problems reprioritized. Patient report given, questions answered & plan of care reviewed with Agnieszka HOUGH.
[2019-07-27] MEDS: lactobacillus rhamnosus 10,000 MMU CELLS/CAPSULE PO SCH (20:00)
[2019-07-27] MEDS: cefepime 1GM in D5W 50mL 50 ML IV SCH (21:07)
[2019-07-28] VITALS: BP 156/65
[2019-07-28] MEDS: normal saline 1000ml 1,000 ML IV SCH ×3 (02:42→21:48)
[2019-07-28] MEDS: VANCOMYCIN LEVEL IV SCH (03:00)
[2019-07-28 06:41] LABS: BASOPHILS # (AUTO) 0.1 X10'3 (0-0.2); BASOPHILS % (AUTO) 0.4 % (0-1); EOSINOPHILS # (AUTO) 0.4 X10'3 (0-0.9); EOSINOPHILS % (AUTO) 2.8 % (0-6); HEMATOCRIT 26.7 % (35.0-45.0); HEMOGLOBIN 8.9 g/dl (12.0-16.0); LYMPHOCYTES # (AUTO) 1.3 X10'3 (1.1-4.8); LYMPHOCYTES % (AUTO) 9.6 % (21-51); MEAN CORPUSCULAR HEMOGLOBIN 28.2 PG (27.0-31.0); MEAN CORPUSCULAR HGB CONC 33.4 g/dL (33.0-36.5); MEAN CORPUSCULAR VOLUME 84.5 FL (78-98); MEAN PLATELET VOLUME 8.6 FL (7.4-10.4); MONOCYTES # (AUTO) 0.5 X10'3 (0-0.9); MONOCYTES % (AUTO) 3.7 % (2-12); NEUTROPHILS # (AUTO) 11.3 X10'3 (1.8-7.7); NEUTROPHILS % (AUTO) 83.5 % (42-75); PLATELET COUNT 124 X10'3 (140-440); RED BLOOD COUNT 3.16 X10'6 (4.20-5.60); RED CELL DISTRIBUTION WIDTH 15.7 % (11.5-14.5); WHITE BLOOD COUNT 13.6 X10'3 (4.5-11.0)
--- NOTE | 2019-07-28 06:42 | NUR ---
Problems reprioritized. Patient report given, questions answered & plan of care reviewed with GIANLUCA Magana.
[2019-07-28 07:25] LABS: ALANINE AMINOTRANSFERASE 28 U/L (12-78); ALBUMIN 1.7 G/DL (3.4-5.0); ALBUMIN/GLOBULIN RATIO 0.4 (1.1-1.5); ALKALINE PHOSPHATASE 72 IU/L (46-116); ANION GAP 9 (8-16); ASPARTATE AMINO TRANSFERASE 44 U/L (10-37); BILIRUBIN,TOTAL 0.3 MG/DL (0.1-1.0); BLOOD UREA NITROGEN 54 MG/DL (7-18); CALCIUM 9.7 MG/DL (8.5-10.1); CHLORIDE 114 MMOL/L (99-107); MAGNESIUM 1.6 MG/DL (1.5-2.4); PHOSPHORUS 2.3 MG/DL (2.3-4.5); POTASSIUM 3.8 MMOL/L (3.5-5.1); SODIUM 146 MMOL/L (135-145); TOTAL CARBON DIOXIDE 23.4 MMOL/L (24-32); TOTAL PROTEIN 5.8 G/DL (6.4-8.2); VANCOMYCIN,RANDOM 13.1 UG/ML; eGFR 17 ML/MIN
[2019-07-28 07:29] LABS: GLUCOSE 84 MG/DL (70-104)
[2019-07-28] MEDS: K and/or MAG REPLACEMENT MC SCH (08:00)
[2019-07-28 08:03] VITALS: BP 159/67
[2019-07-28] MEDS ORDERED: vancomycin/NS 1 GM ADD-VANTAGE 250 ML IV ONE (08:10)
[2019-07-28] MEDS ORDERED: vancomycin/NS 1 GM ADD-VANTAGE 250 ML IV PRN (09:00)
[2019-07-28] MEDS: cefepime 1GM in D5W 50mL 50 ML IV SCH ×2 (09:02→21:49)
[2019-07-28] MEDS: pantoprazole 40 MG vial IV SCH (09:03)
[2019-07-28] MEDS: lactobacillus rhamnosus 10,000 MMU CELLS/CAPSULE PO SCH ×2 (09:03→20:00)
[2019-07-28] MEDS: heparin, porcine 5000 units/ml vial SQ SCH ×2 (09:04→21:51)
[2019-07-28 12:55] VITALS: BP 163/70
--- NOTE | 2019-07-28 14:19 | NUR ---
MD aware of NA and CL lab levels. Orders to decrease fluids.
--- NOTE | 2019-07-28 14:38 | NUR ---
Paged PT for PT evaluation.
--- NOTE | 2019-07-28 19:02 | NUR ---
Patient in room [facility] 359. I have received report from Izzy HOUGH and had the opportunity to ask questions and assume patient care.
[2019-07-28 20:00] VITALS: BP 170/67
[2019-07-29 00:42] VITALS: BP 166/68
[2019-07-29] MEDS: VANCOMYCIN LEVEL IV SCH (03:00)
[2019-07-29] MEDS: normal saline 1000ml 1,000 ML IV SCH ×2 (04:30→12:13)
[2019-07-29 05:35] LABS: BASOPHILS % (AUTO) 0.2 % (0-1); EOSINOPHILS # (AUTO) 0.6 X10'3 (0-0.9); HEMATOCRIT 27.7 % (35.0-45.0); HEMOGLOBIN 9.2 g/dl (12.0-16.0); LYMPHOCYTES # (AUTO) 1.3 X10'3 (1.1-4.8); LYMPHOCYTES % (AUTO) 8.7 % (21-51); MEAN CORPUSCULAR HEMOGLOBIN 28.4 PG (27.0-31.0); MEAN CORPUSCULAR HGB CONC 33.2 g/dL (33.0-36.5); MEAN CORPUSCULAR VOLUME 85.5 FL (78-98); MEAN PLATELET VOLUME 8.7 FL (7.4-10.4); MONOCYTES # (AUTO) 0.5 X10'3 (0-0.9); MONOCYTES % (AUTO) 3.6 % (2-12); NEUTROPHILS # (AUTO) 12.1 X10'3 (1.8-7.7); NEUTROPHILS % (AUTO) 83.5 % (42-75); PLATELET COUNT 122 X10'3 (140-440); RED BLOOD COUNT 3.24 X10'6 (4.20-5.60); RED CELL DISTRIBUTION WIDTH 15.3 % (11.5-14.5); WHITE BLOOD COUNT 14.5 X10'3 (4.5-11.0)
[2019-07-29 05:50] LABS: ALANINE AMINOTRANSFERASE 22 U/L (12-78); ALBUMIN 1.8 G/DL (3.4-5.0); ALBUMIN/GLOBULIN RATIO 0.4 (1.1-1.5); ALKALINE PHOSPHATASE 81 IU/L (46-116); ANION GAP 7 (8-16); ASPARTATE AMINO TRANSFERASE 37 U/L (10-37); BILIRUBIN,TOTAL 0.4 MG/DL (0.1-1.0); BLOOD UREA NITROGEN 40 MG/DL (7-18); BUN/CREATININE RATIO 17.5 (6.6-38.0); CALCIUM 9.4 MG/DL (8.5-10.1); CHLORIDE 115 MMOL/L (99-107); CREATININE 2.28 MG/DL (0.40-0.90); GLUCOSE 83 MG/DL (70-104); POTASSIUM 3.6 MMOL/L (3.5-5.1); SODIUM 146 MMOL/L (135-145); TOTAL CARBON DIOXIDE 24.4 MMOL/L (24-32); TOTAL PROTEIN 6.2 G/DL (6.4-8.2); eGFR 20 ML/MIN
[2019-07-29 05:51] LABS: MAGNESIUM 1.4 MG/DL (1.5-2.4); PHOSPHORUS 1.9 MG/DL (2.3-4.5)
[2019-07-29 06:12] LABS: VANCOMYCIN,TROUGH 21.2 UG/ML (6.0-14.0)
--- NOTE | 2019-07-29 06:30 | NUR ---
Patient in room [facility] 359. I have received report from GIANLUCA Vance and had the opportunity to ask questions and assume patient care.
--- NOTE | 2019-07-29 06:30 | NUR ---
Problems reprioritized. Patient report given, questions answered & plan of care reviewed with Lana RN.
--- NOTE | 2019-07-29 06:31 | NUR ---
Patient in room SH[facility] 359. I have received report from Pinky HOUGH and had the opportunity to ask questions and assume patient care.
--- NOTE | 2019-07-29 07:08 | NUR ---
Notified Dr. Clemente of patient's critical vanco trough 21.2, no further orders at this time.
[2019-07-29] MEDS ORDERED: hydrALAZINE 20mg/ml inj. IV PRN (07:20)
[2019-07-29 07:30] VITALS: BP 182/86
[2019-07-29] MEDS: pantoprazole 40 MG vial IV SCH (07:42)
[2019-07-29] MEDS: cefepime 1GM in D5W 50mL 50 ML IV SCH (07:42)
[2019-07-29] MEDS: lactobacillus rhamnosus 10,000 MMU CELLS/CAPSULE PO SCH (07:47)
[2019-07-29] MEDS: heparin, porcine 5000 units/ml vial SQ SCH (07:51)
[2019-07-29] MEDS: K and/or MAG REPLACEMENT MC SCH (08:00)
[2019-07-29 08:50] VITALS: BP 151/62
--- NOTE | 2019-07-29 08:51 | NUR ---
PT's BP this am 182/86, and upon recheck BP was 192/78 HR of 93, notified Dr. Clemente and per his order, gave 10 mg of IV hydralazine. Blood pressure is now 151/62, will continue to monitor.
[2019-07-29 11:30] VITALS: BP 135/62
--- NOTE | 2019-07-29 11:30 | NUR ---
Student Medication Administration: For this medication-pass time frame, all medication were reviewed, dispensed, administered and documented per hospital policy by Sendy nursing secretary.
--- NOTE | 2019-07-29 11:30 | NUR ---
Student documentation: I have reviewed and agree with all interventions, assessments performed and documented by Sendy, nursing program chair.
--- NOTE | 2019-07-29 12:03 | NUR ---
Problems reprioritized. Patient report given, questions answered & plan of care reviewed with Micky RN. Student documentation: I have reviewed and agree with all interventions, assessments performed and documented by [].
[2019-07-29] MEDS ORDERED: Neutra Phos packet PO SCH (13:00)
--- NOTE | 2019-07-29 15:17 | NUR ---
Problems reprioritized. Patient report given, questions answered & plan of care reviewed with GIANLUCA Flor.
--- NOTE | 2019-07-29 15:25 | NUR ---
Patient in room [facility] 359. I have received report from Ayaz HOUGH and had the opportunity to ask questions and assume patient care.
--- NOTE | 2019-07-29 15:49 | NUR ---
Patient discharged into the care of the medical transport company, IV taken out and report called prior to having patient care transfered to md. Patient is being transported to SNF at this time.
[2019-07-30] MEDS ORDERED: pantoprazole 40mg Tablet.DR PO SCH (07:30)
== END 2019-07-29 15:43 | DRG 871 ==
LOC: ER 10:20 → ED HOLD 14:33 → SUR 3N 16:30
PROVIDERS: ADMIT Family Medicine; ATTEND Hospitalist
DX: A41.9 Sepsis, unspecified organism (principal); N17.0 Acute kidney failure with tubular necrosis; E43 Unspecified severe protein-calorie malnutrition; N39.0 Urinary tract infection, site not specified; R64 Cachexia; F03.90 Unspecified dementia, unspecified severity, without behavioral disturbance, psychotic disturbance, mood disturbance, and anxiety; D72.829 Elevated white blood cell count, unspecified; Z51.5 Encounter for palliative care; E83.52 Hypercalcemia; B95.2 Enterococcus as the cause of diseases classified elsewhere; E03.9 Hypothyroidism, unspecified; E86.0 Dehydration; I10 Essential (primary) hypertension; Z66 Do not resuscitate; Z87.442 Personal history of urinary calculi; Z68.22 Body mass index [BMI] 22.0-22.9, adult; Z88.2 Allergy status to sulfonamides; Z88.0 Allergy status to penicillin; R59.1 Generalized enlarged lymph nodes
CPT/HCPCS: 36415; 71045; 74176; 80053; 80202; 81001; 82330; 82948; 83605; 83735; 84100; 84145; 85025; 87040; 87081; 87088; 94667; 94760; 96365; 97116; 97161; 97530; 99285; C9113; G0378; J0360; J0692; J0696; J1170; J1644; J3370; J7030

== ENCOUNTER 2019-08-23 15:22 | Inpatient (IN) | payer MEDICARE, OTHER ==
[~2019-08-23] VITALS: Ht 157.5 cm; Wt 59.1 kg
[~2019-08-23 15:22] MED LIST changes: +AMLO2.5T2 PO; -HEPA500017 SQ; -LEVO100T PO; -LISI2.5T2 PO; -LISI40TA4 PO; +SYN0.088T PO
[2019-08-23] MEDS ORDERED: normal saline 1000ML IV soln IVB ONE (16:00)
[2019-08-23] MEDS ORDERED: morphine 4 MG/ML inj SYRINge IV PRN (16:00)
[2019-08-23] MEDS ORDERED: ondansetron/PF 4mg/2ml inj IV ONE (16:00)
--- NOTE | 2019-08-23 16:30 | NUR ---
DENNIS ROBERT DAUGHTER [phone] CELL: POA FOR [facility] [place] GRANDDAUGHTER [phone] HOME DISCUSSED END OF LIFE CARE THAT HER MOTHER/GRANDMOTHER WOULD WANT: NO ARTIFICIAL FOOD, NO ARTIFICIAL FLUID, NO ARTIFICIAL NUTRITRION. GOAL OF CARE IS COMFORT. NO OXYGEN, NO DEEP TRACHEAL SUCTIONING, DNR, COMFORT MEASURES ONLY
[2019-08-23 16:41] LABS: BASOPHILS # (AUTO) 0.2 X10'3 (0-0.2); BASOPHILS % (AUTO) 0.4 % (0-1); EOSINOPHILS # (AUTO) 0.6 X10'3 (0-0.9); EOSINOPHILS % (AUTO) 1.4 % (0-6); HEMATOCRIT 32.2 % (35.0-45.0); HEMOGLOBIN 10.5 g/dl (12.0-16.0); LYMPHOCYTES # (AUTO) 4.5 X10'3 (1.1-4.8); LYMPHOCYTES % (AUTO) 10.1 % (21-51); MEAN CORPUSCULAR HEMOGLOBIN 27.9 PG (27.0-31.0); MEAN CORPUSCULAR HGB CONC 32.7 g/dL (33.0-36.5); MEAN CORPUSCULAR VOLUME 85.5 FL (78-98); MEAN PLATELET VOLUME 8.7 FL (7.4-10.4); MONOCYTES # (AUTO) 1.2 X10'3 (0-0.9); MONOCYTES % (AUTO) 2.8 % (2-12); NEUTROPHILS # (AUTO) 37.9 X10'3 (1.8-7.7); NEUTROPHILS % (AUTO) 85.3 % (42-75); PLATELET COUNT 204 X10'3 (140-440); RED BLOOD COUNT 3.77 X10'6 (4.20-5.60); RED CELL DISTRIBUTION WIDTH 16.6 % (11.5-14.5)
[2019-08-23 16:44] LABS: WHITE BLOOD COUNT 44.5 X10'3 (4.5-11.0)
[2019-08-23 16:51] LABS: ALANINE AMINOTRANSFERASE 8 U/L (12-78); ALBUMIN 2.3 G/DL (3.4-5.0); ALBUMIN/GLOBULIN RATIO 0.4 (1.1-1.5); ALKALINE PHOSPHATASE 192 IU/L (46-116); ANION GAP 16 (8-16); ASPARTATE AMINO TRANSFERASE 30 U/L (10-37); BILIRUBIN,TOTAL 0.4 MG/DL (0.1-1.0); BLOOD UREA NITROGEN 75 MG/DL (7-18); BUN/CREATININE RATIO 15.6 (6.6-38.0); CALCIUM 11.3 MG/DL (8.5-10.1); CHLORIDE 106 MMOL/L (99-107); GLUCOSE 135 MG/DL (70-104); LIPASE 80 U/L (73-393); POTASSIUM 4.8 MMOL/L (3.5-5.1); SODIUM 139 MMOL/L (135-145); TOTAL CARBON DIOXIDE 17.3 MMOL/L (24-32); TOTAL PROTEIN 7.8 G/DL (6.4-8.2); eGFR 9 ML/MIN
[2019-08-23 17:24] LABS: ANISOCYTOSIS 1+; MICROCYTOSIS 1+; PLATELET ESTIMATE NORMAL; POLYCHROMASIA FEW; TOTAL CELLS COUNTED 100
[2019-08-23] MEDS ORDERED: ondansetron/PF 4mg/2ml inj IV PRN (17:25)
[2019-08-23] MEDS ORDERED: mag hydrox/Alum hydrox/simeth 30ml oral suspension PO PRN (17:25)
[2019-08-23] MEDS ORDERED: morphine 2 MG/ML inj. syringe IV PRN (17:25)
[2019-08-23] MEDS ORDERED: acetaminophen 325mg tablet PO PRN ×2 (17:25)
[2019-08-23] MEDS ORDERED: HYDROcodone/acetaminophen 5mg/325mg tablet PO PRN (17:25)
[2019-08-23] MEDS ORDERED: HYDROcodone/acetaminophen 10/325mg tab PO PRN (17:25)
[2019-08-23] MEDS: scopolamine 1.5mg patch.TD72 TD SCH (18:01)
--- NOTE | 2019-08-23 18:45 | NUR ---
PHONE REPORT TO ASHLIE RN, PATIENT TO GO TO ORTHO ROOM [address] ON [facility] WITH [facility] FOR COMFORT CARE. GIANLUCA DAILEY WILL CALL HOSPITALIST TO SEE IF HEPARIN SQ CAN BE DISCONTINUED AND TO SEE IF A HARRINGTON CAN BE PLACED
[2019-08-23 19:00] VITALS: BP 143/55
--- NOTE | 2019-08-23 19:00 | NUR ---
Assumed care of patient after ED report from Pratima HOUGH. Pt. transferred into ortho bed and positioned with HOB up. Pt. nonverbal though moaning during positioning. 2RN skin check completed. No reddened or open areas seen.
[2019-08-23] MEDS ORDERED: heparin, porcine 5000 units/ml vial SQ SCH (20:00)
--- NOTE | 2019-08-23 20:19 | NUR ---
F/C placed with sterile technique for comfort care protocol. Urine dark, foul smelling and heavy sediment in tubing. Color of urine changed to red after collecting for a few mins. Positioned onto L side, HOB up and oral care given.
[2019-08-23] MEDS: morphine 2 MG/ML inj. syringe IV PRN (23:06)
[2019-08-24] MEDS: LORazepam 2 mg/ml vial IV PRN (02:02)
--- NOTE | 2019-08-24 06:27 | NUR ---
Problems reprioritized. Patient report given, questions answered & plan of care reviewed with JYOTI HOUGH.
[2019-08-24 10:00] VITALS: BP 119/47
--- NOTE | 2019-08-24 12:29 | NUR ---
Pt has been made DNR w/ comfort care. Will continue to follow per protocol. Addendum: 08/24/19 at [address] Amended: Links added.
--- NOTE | 2019-08-24 18:04 | NUR ---
Problems reprioritized. Patient report given, questions answered & plan of care reviewed with GIANLUCA Blanco.
--- NOTE | 2019-08-24 18:22 | NUR ---
Patient in room ORTHO 4023. I have received report from Analilia HOUGH and had the opportunity to ask questions and assume patient care.
--- NOTE | 2019-08-24 18:30 | NUR ---
Problems reprioritized. Patient report given, questions answered & plan of care reviewed with GIANLUCA Blanco.
[2019-08-24] MEDS: morphine 2 MG/ML inj. syringe IV PRN (23:22)
[2019-08-25] MEDS: morphine 2 MG/ML inj. syringe IV PRN ×2 (05:59→12:34)
--- NOTE | 2019-08-25 06:51 | NUR ---
Problems reprioritized. Patient report given, questions answered & plan of care reviewed with JYOTI HOUGH.
[2019-08-25 10:00] VITALS: BP 118/73
--- NOTE | 2019-08-26 06:11 | NUR ---
Problems reprioritized. Patient report given, questions answered & plan of care reviewed with Analilia HOUGH.
[2019-08-26] MEDS: morphine 2 MG/ML inj. syringe IV PRN ×2 (08:07→17:43)
[2019-08-26 10:00] VITALS: BP 126/52
[2019-08-26] MEDS: LORazepam 2 mg/ml vial IV PRN (10:02)
[2019-08-26] MEDS: scopolamine 1.5mg patch.TD72 TD SCH (17:42)
[2019-08-26 18:00] VITALS: BP 126/57
--- NOTE | 2019-08-26 18:25 | NUR ---
Received report from GIANLUCA Billingsley. Assumed patient care.
--- NOTE | 2019-08-26 18:45 | NUR ---
Problems reprioritized. Patient report given, questions answered & plan of care reviewed with GIANLUCA Silva.
--- NOTE | 2019-08-27 06:24 | NUR ---
Patient report given, questions answered and plan of care reviewed with GIANLUCA Ramey.
[2019-08-27] MEDS: morphine 2 MG/ML inj. syringe IV PRN ×3 (07:38→16:10)
[2019-08-27 10:40] VITALS: BP 118/51
--- NOTE | 2019-08-27 11:00 | NUR ---
Patient in room ORTHO 4023. I have received report from ANTOLIN HOUGH and had the opportunity to ask questions and assume patient care.
--- NOTE | 2019-08-27 18:20 | NUR ---
Problems reprioritized. Patient report given, questions answered & plan of care reviewed with DIANA HOUGH.
[2019-08-27 22:00] VITALS: BP 116/67
[2019-08-28] MEDS: morphine 2 MG/ML inj. syringe IV PRN (08:04)
[2019-08-28 10:00] VITALS: BP 107/39
--- NOTE | 2019-08-28 11:45 | NUR ---
RN IS TO DOCUMENT YES TO ALL APPLICABLE AREAS Pronouncement of : 1. Time Physician Notified:[id number] 2. Date of :08/28/19 3. Time of : 1145 4. DNR/Withdraw life support documented:YES 5. Monitor strip has been placed on chart:YES 6. Assessment process is of one-minute duration and includes following criteria: a) Patient is unresponsive to all stimuli: YES b) Pupils fixed and non-reactive:YES c) Auscultation of precordium reveals absence of heart tones:YES d) Auscultation of lungs reveals absence of breath sounds:YES e) Absence of blood pressure / all vital signs:YES f) QRS complexes are not present on monitor / EKG strip:YES g) Pacer spikes without capture:YES 4. Comments:
--- NOTE | 2019-08-28 11:46 | NUR ---
HOSPITALIST NOTIFIED OF PATIENT PASSING.
--- NOTE | 2019-08-28 11:52 | NUR ---
promotional table spacer PAGER ID: [phone] MESSAGE: ROBY [phone] RE: HARLEEN [phone] FYI SHE JUST PASSED.
--- NOTE | 2019-08-28 11:56 | NUR ---
HARRINGTON CATHETER REMOVED
--- NOTE | 2019-08-28 13:40 | NUR ---
PATIENT PICKED UP FOR TRANSPORT BY [employer]WNCRE[employer] STAFF. ONLY BELONGINGS WERE PATIENT'S SLIPPERS THAT WERE ON HER AT TIME OF PICKUP.
== END 2019-08-28 13:35 | disposition expired | DRG 872 ==
LOC: ER 15:22 → ED HOLD 17:21 → ORTHO 4S 18:57
PROVIDERS: ADMIT Internal Medicine; ATTEND Internal Medicine
DX: A41.9 Sepsis, unspecified organism (principal); N17.9 Acute kidney failure, unspecified; R65.20 Severe sepsis without septic shock; E03.9 Hypothyroidism, unspecified; E83.52 Hypercalcemia; F03.90 Unspecified dementia, unspecified severity, without behavioral disturbance, psychotic disturbance, mood disturbance, and anxiety; I10 Essential (primary) hypertension; R62.7 Adult failure to thrive; R31.9 Hematuria, unspecified; Z51.5 Encounter for palliative care; Z66 Do not resuscitate; Z87.440 Personal history of urinary (tract) infections; Z87.442 Personal history of urinary calculi; Z68.23 Body mass index [BMI] 23.0-23.9, adult; Z88.0 Allergy status to penicillin; Z88.2 Allergy status to sulfonamides
CPT/HCPCS: 36415; 80053; 83690; 85025; 87081; 96374; 96375; 99285; G0378; J2060; J2270; J2405